=== PATIENT | male | born 1985 | race Caucasian/White ===

== ENCOUNTER 2020-03-04 06:05 | Day surgery (SDC) | payer OTHER ==
[2020-02-28 12:21] LABS: BASOPHIL % 0.8 % (0-2); PLATELET COUNT 228 x10^3mcL (130-400); RED CELL DISTRIBUTION WIDTH 12.9 % (11.5-14.5)
[2020-02-28 12:42] LABS: CALCIUM 9.6 mg/dL (8.5-10.1); CARBON DIOXIDE 35.2 mmol/L (21-32); CHLORIDE SERUM 100 mmol/L (98-107); GFR1 > 60 mL/min; GLUCOSE SERUM 78 mg/dL (74-106); POTASSIUM SERUM 4.7 mmol/L (3.5-5.1); SODIUM SERUM 138 mmol/L (136-145)
[~2020-03-04] VITALS: Ht 185.4 cm; Wt 86.2 kg
[2020-03-04 06:25] VITALS: BP 129/77
[2020-03-04 11:02] VITALS: BP 129/73
== END 2020-03-04 10:50 | disposition home or self-care (01) ==
LOC: DS 06:05 → OR 07:30 → DS 07:30
PROVIDERS: ATTEND Neuromusculoskeletal Medicine, Sports Medicine
DX: S50.852A Superficial foreign body of left forearm, initial encounter (principal); Z11.59 Encounter for screening for other viral diseases; X58.XXXA Exposure to other specified factors, initial encounter; Y93.89 Activity, other specified; Y92.89 Other specified places as the place of occurrence of the external cause; Y99.8 Other external cause status
CPT/HCPCS: J0131; J0690; J2250; J2405; J2704; J3010; J3490; J7120; U0003-CS